=== PATIENT | female | born 1995 | race Caucasian/White ===

== ENCOUNTER 2017-01-11 12:53 | Emergency (ER) | payer BC, OTHER ==
[2017-01-11 13:05] VITALS: RESP 20
[2017-01-11 15:19] LABS: MUCUS TRACE /lpf (NONE-1+); WBC,URINE 15-25 /hpf (0-3)
[2017-01-11 15:20] LABS: COLOR AMBER
--- NOTE | 2017-01-11 15:20 | EDPHY ---
H & P Time Seen by Provider: 01/11/17 14:18 HPI/ROS: CHIEF COMPLAINT: Abdominal pain, painful genital rash HISTORY OF PRESENT ILLNESS: 21-year-old female presents to the emergency department complaining of diffuse abdominal pain. She is also having some low back discomfort. She was seen by a provider yesterday and was diagnosed with urinary tract infection possible early pyelonephritis. She was started on Keflex by her stepfather and the provider yesterday added doxycycline 100 mg twice daily. She has been taking this as prescribed but still complains of painful genital rash. She is concerned that she may have herpes. She has never had herpetic rash in the past. She was treated for Chlamydia several months ago was positive and was treated. Both her and her partner treated. She states recently she was tested for sexually transmitted infections they were all negative. She denies vomiting. Denies fevers. She does not feel nauseous. She has had a history of urinary tract infections and kidney infections in the past. REVIEW OF SYSTEMS: Constitutional: No fever, no chills. Eyes: No double or blurry vision. ENT: No sore throat. Respiratory: No cough, no shortness of breath. Cardiac: No chest pain. Gastrointestinal: Abdominal pain. No vomiting or diarrhea. Genitourinary: No dysuria. Musculoskeletal: Low back pain as above. No neck pain Skin: Genital rash Neurological: No headache. Past Medical/Surgical History: Frequent urinary tract infections Social History: Single, [employer] student Smoking Status: Never smoked Physical Exam: General Appearance: Alert, no distress. Afebrile. No apparent distress. Eyes: Pupils equal and round. Extraocular motions are all intact. ENT: Mouth: Mucous membranes moist. Respiratory: No wheezing, rhonchi, or rales, lungs are clear to auscultation. Cardiovascular: Regular rate and rhythm. Gastrointestinal: Abdomen is soft and nontender, no masses, no rebound or guarding, bowel sounds normal. Mild bilateral CVA tenderness. Neurological: Alert and oriented x 3, cranial nerves II through XII grossly intact Skin: External female genitalia reveals erythematous papular rash with central ulcerative lesions. No intact vesicles noted. There is also an ulcerative lesion noted to the inside of the right labia minora. Rash appears consistent with genital herpes. Warm and dry. Musculoskeletal: Nontender to palpate along the cervical, thoracic or lumbar spine. Neck is supple. Extremities: Full range of motion and no peripheral edema. Psychiatric: Patient is oriented X 3, there is no agitation. Constitutional: Initial Vital Signs Temperature (C) 36.4 C 01/11/17 13:02 Heart Rate 114 H 01/11/17 13:02 Respiratory Rate 20 01/11/17 13:02 Blood Pressure 132/90 H 01/11/17 13:02 O2 Sat (%) 98 01/11/17 13:02 O2 Delivery Mode Room Air Allergies/Adverse Reactions: No Known Allergies Allergy (Verified 01/11/17 13:00) Home Medications: Medication Instructions Recorded Cephalexin [Keflex] 500 mg PO QID #28 cap 08/05/16 Doxycycline Calcium 01/11/17 Eliquis 01/11/17 Percocet 5/325 (*) 01/11/17 Valacyclovir HCl [Valtrex] 1,000 mg PO BID #14 tablet 01/11/17 Medical Decision Making ED Course/Re-evaluation: 21-year-old female presents to the emergency department with abdominal pain and low back pain. She is concerned about persisting kidney infection. She was started on Keflex which she has been taking as prescribed four times daily. She was also started on doxycycline yesterday. It is not clear why doxycycline was initiated. She states that no one looked at the rash yesterday. The erythematous ulcerative lesions noted to the groin appear consistent with genital herpes. I recommended initiating Valtrex since she is within 48 hours of the onset. Patient verbalized understanding and agreed. I did discuss sexually transmitted infections with her partner outside of the room. Patient is not concerned about any other sexually transmitted infections. She states that she was recently tested for herpes and chlamydia and these were negative. She does not want additional testing done. I do not see intact vesicular lesion to test for possible genital herpes. I feel that clinically her rash is consistent with genital herpes and she will be started on Valtrex. I encouraged the patient to continue Keflex. She will call for her urine culture results. The urinalysis today revealed 10-15 white blood cells and the rest the test could not be performed because she is taking [id number] Uristat. Urine cultures pending. It is not clear to me why doxycycline was initiated I encouraged her to call that provider define more information. I do not think doxycycline is necessary given her rash. I do not think this would be helpful given her urinary tract infection. Differential Diagnosis: Including but not limited to urinary tract infection, pyelonephritis, genital herpes, sexually transmitted infection, kidney stone - Data Points Laboratory Results: 01/11/17 01/11/17 02:55 02:55 Urine Color TIM Urine Appearance HAZY Urine pH TNP Ur Specific [place] TNP Urine Protein TNP Urine Ketones TNP Urine Blood TNP Urine Nitrate TNP Urine Bilirubin TNP Urine Urobilinogen TNP Ur Leukocyte Esterase TNP Urine RBC 1-3 /hpf /hpf (0-3) Urine WBC 15-25 /hpf H /hpf (0-3) Ur Epithelial Cells TRACE /lpf /lpf (NONE-1+) Urine Mucus TRACE /lpf /lpf (NONE-1+) Urine Glucose TNP Urine Test NEGATIVE Departure - Departure Disposition: Home, Routine, Self-Care Clinical Impression: Herpes simplex, Dysuria Condition: Good Instructions: Genital Herpes Simplex (ED), Dysuria (ED) Additional Instructions: Valtrex 1000 mg twice daily for 1 week. You should start this medication today. Continue Keflex as prescribed. Call [phone] for the results of your urine culture in 48 hours. Return if he develops fever, vomiting, back pain, abdominal pain, or if you feel worse in any way. Referrals: JACK HAIRSTON [Other] - As per Instructions Prescriptions: Valacyclovir HCl [Valtrex] 1,000 mg PO BID #14 tablet
[2017-01-11 16:11] VITALS: BP 111/73; PULSE 90; TEMP 98.1; O2SAT 94
[2017-01-11] MEDS ORDERED: LIDOCAINE 2% JELLY 20 ML (UROJECT) ONE (16:45)
== END 2017-01-11 16:10 | disposition home or self-care (01) ==
DX: R30.0 Dysuria (principal); B00.9 Herpesviral infection, unspecified